=== PATIENT | male | born 1950 | race Caucasian/White ===

== ENCOUNTER 2020-09-16 10:30 | Outpatient (REF) | payer MEDICARE, OTHER, SELFPAY ==
--- NOTE | ~2020-09-16 | XR_ITS ---
EXAMINATION: XR CHEST CLINICAL INFORMATION: Chronic cough COMPARISON: None TECHNIQUE: 2 views of the chest were obtained. FINDINGS: The cardiac silhouette is enlarged. The thoracic aorta is tortuous and may be slightly dilated. Hilar and mediastinal contours are otherwise unremarkable. The lungs are clear. There is no pleural effusion or pneumonia thorax. There are degenerative changes of the spine. XR/XR chest 2V IMPRESSION: Enlarged cardiac silhouette. Tortuous possibly slightly dilated thoracic aorta.
== END 2020-09-16 10:31 | disposition home or self-care (01) ==
LOC: HO.10HDL 10:30
PROVIDERS: PCP Family Medicine; Visit Provider Otolaryngology
DX: R05 Cough (principal); J30.89 Other allergic rhinitis
CPT/HCPCS: 36415; 71046; 82785; 86003